=== PATIENT | female | born 1935 | race Caucasian/White ===

== ENCOUNTER 2016-05-23 07:27 | Day surgery (SDC) | payer MEDICARE ==
[2016-05-23] MEDS ORDERED: EPINEPHRINE 1 MG/ML AMPUL SQ ONE (12:58)
[2016-05-23] MEDS ORDERED: TETRACAINE HCL 0.5% 15 ML OPTH BTL OPTH ONE (12:58)
[2016-05-23] MEDS ORDERED: TOBRAMYCIN 0.3% OPTH DROP 5 ML BTL OPTH ONE (12:58)
[2016-05-23] MEDS ORDERED: PREDNISOLONE ACETATE 1% OPTH 10ML BOTTLE OPTH ONE (12:58)
[2016-05-23] MEDS ORDERED: NEOMYCIN/POLY./DEXAM OPTH OINT OPTH ONE (12:58)
[2016-05-23] MEDS ORDERED: TROPICAMIDE 1% 15ML BTL OP ONE (12:58)
[2016-05-23] MEDS ORDERED: DEXAMETHASONE 4 MG/ML 1ML VIAL IVP ONE (12:58)
[2016-05-23] MEDS ORDERED: LIDOCAINE 2% MDV (20MG/ML) 20ML VIAL IV ONE ×2 (12:58→15:30)
[2016-05-23] MEDS ORDERED: PHENYLEPHRINE HCL 10% OPTH BTL OPTH ONE (12:58)
[2016-05-23] MEDS ORDERED: PROPOFOL 10 MG/ML VIAL IV ONE (15:30)
--- NOTE | 2016-05-23 15:47 | OP NOTE CHAMES ---
DATE OF PROCEDURE: 05/23/16 PREOPERATIVE DIAGNOSIS: Nuclear sclerotic cataract, right eye. POSTOPERATIVE DIAGNOSIS: Nuclear sclerotic cataract, right eye. OPERATION: Phacoemulsification of cataractous lens with implantation of intraocular lens. LENS IMPLANT USED: Bynum Model PCB00 + 20.5 diopters. COMPLICATIONS: None. PROCEDURE IN DETAIL: Following a retrobulbar and facial block, the patient was prepped and draped in the usual fashion for eye surgery. A lid speculum was placed in the right eye after which a 2.4 mm tunnel wound was placed at the temporal limbus and dissected into clear cornea. A paracentesis was placed at 2 oclock hours to the left and right of the initial incision and the chamber deepened with Viscoelastic. The keratome was then used to enter the anterior chamber after which the continuous circular capsulorrhexis was accomplished without difficulty using a bent needle and a Utrata forceps. Hydrodissection and hydrodelineation of the lens was performed after which the nucleus of the lens was removed using the Phaco handpiece in the [id number] technique. The residual cortical material was irrigated and aspirated from the eye after which the bag and chamber were re-examined. The bag was re-inflated with Viscoelastic and the intraocular lens injected into the capsular bag where it centered well. The Viscoelastic was then copiously irrigated and aspirated from the eye after which the temporal tunnel wound and paracentesis were hydrated and the wounds were examined. They were noted to be watertight. The lid speculum was removed from the eye and the eye patched and shielded. The patient was transferred to the recovery room in satisfactory condition and given an appointment to be reexamined in the clinic later today or as directed by Dr. Tompkins. Oc Tompkins M.D. Date & Time JOB NUMBER: [id number] MTDD
== END 2016-05-23 10:12 | disposition home or self-care (01) ==
LOC: SUR 07:27
PROVIDERS: ATTEND Ophthalmology
DX: H25.11 Age-related nuclear cataract, right eye (principal); I10 Essential (primary) hypertension
CPT/HCPCS: J0171

== ENCOUNTER 2016-06-06 07:17 | Day surgery (SDC) | payer MEDICARE ==
[2016-06-06] MEDS ORDERED: LIDOCAINE 2% MDV (20MG/ML) 20ML VIAL IV ONE (12:36)
[2016-06-06] MEDS ORDERED: PREDNISOLONE ACETATE 1% OPTH 10ML BOTTLE OPTH ONE (12:36)
[2016-06-06] MEDS ORDERED: TETRACAINE HCL 0.5% 15 ML OPTH BTL OPTH ONE (12:36)
[2016-06-06] MEDS ORDERED: TOBRAMYCIN 0.3% OPTH DROP 5 ML BTL OPTH ONE (12:36)
[2016-06-06] MEDS ORDERED: EPINEPHRINE 1 MG/ML AMPUL SQ ONE (12:36)
[2016-06-06] MEDS ORDERED: PHENYLEPHRINE HCL 10% OPTH BTL OPTH ONE (12:36)
[2016-06-06] MEDS ORDERED: TROPICAMIDE 1% 15ML BTL OP ONE (12:36)
[2016-06-06] MEDS ORDERED: TETRACAINE HCL 0.5% OPTH 2ML SOLU OPTH ONE (12:36)
[2016-06-06] MEDS ORDERED: NEOMYCIN/POLY./DEXAM OPTH OINT OPTH ONE (12:36)
[2016-06-06] MEDS ORDERED: PROPOFOL 10 MG/ML VIAL IV ONE (14:00)
--- NOTE | 2016-06-06 14:52 | OP NOTE CHAMES ---
DATE OF PROCEDURE: 06/06/16 PREOPERATIVE DIAGNOSIS: Nuclear sclerotic cataract, left eye. POSTOPERATIVE DIAGNOSIS: Nuclear sclerotic cataract, left eye. OPERATION: Phacoemulsification of cataractous lens with implantation of intraocular lens. LENS IMPLANT USED: Bynum Model PCB00 + 20.5 diopters. COMPLICATIONS: None. PROCEDURE IN DETAIL: Following a retrobulbar and facial block, the patient was prepped and draped in the usual fashion for eye surgery. A lid speculum was placed in the left eye after which a 2.4 mm tunnel wound was placed at the temporal limbus and dissected into clear cornea. A paracentesis was placed at 2 oclock hours to the left and right of the initial incision and the chamber deepened with Viscoelastic. The keratome was then used to enter the anterior chamber after which the continuous circular capsulorrhexis was accomplished without difficulty using a bent needle and a Utrata forceps. Hydrodissection and hydrodelineation of the lens was performed after which the nucleus of the lens was removed using the Phaco handpiece in the [id number] technique. The residual cortical material was irrigated and aspirated from the eye after which the bag and chamber were re-examined. The bag was re-inflated with Viscoelastic and the intraocular lens injected into the capsular bag where it centered well. The Viscoelastic was then copiously irrigated and aspirated from the eye after which the temporal tunnel wound and paracentesis were hydrated and the wounds were examined. They were noted to be watertight. The lid speculum was removed from the eye and the eye patched and shielded. The patient was transferred to the recovery room in satisfactory condition and given an appointment to be reexamined in the clinic later today or as directed by Dr. Tompkins. Oc Tompkins M.D. Date & Time JOB NUMBER: [id number] MTDD
== END 2016-06-06 10:20 | disposition home or self-care (01) ==
LOC: SUR 07:17
PROVIDERS: ATTEND Ophthalmology
DX: H25.12 Age-related nuclear cataract, left eye (principal); I10 Essential (primary) hypertension
CPT/HCPCS: J0171

== ENCOUNTER 2017-07-10 09:54 | Emergency (ER) | payer MEDICARE ==
[2017-07-10] MEDS ORDERED: 0.9 % SODIUM CHLORIDE 1,000 ML BAG IV ONE (10:04)
[2017-07-10] MEDS ORDERED: ONDANSETRON HCL IV 4 MG/2 ML VIAL IV ONE (10:04)
[2017-07-10] MEDS ORDERED: MORPHINE SULFATE 5 MG/ML PFS IVP ONE ×2 (10:05→11:25)
[2017-07-10 10:29] LABS: HEMATOCRIT 43.7 % (35.0-47.0); HEMOGLOBIN 15.3 gm/dl (11.6-16.0); MEAN CELL VOLUME 84.7 fl (81-97); MEAN CORPUSCULAR HEMOGLOBIN 29.7 pg (27-33); MEAN PLATELET VOLUME 9.6 fl (7.4-10.4); PLATELET COUNT 364 K/uL (130-400); RED BLOOD COUNT 5.16 M/uL (3.80-5.40); WHITE BLOOD COUNT W/O DIFF 9.3 K/uL (4.2-12.2)
[2017-07-10 10:39] LABS: CREATININE 1.1 mg/dL (0.5-0.9)
[2017-07-10 10:40] LABS: BILIRUBIN,TOTAL 0.3 mg/dL (0.2-1.0); TOTAL PROTEIN 7.9 g/dL (6.6-8.7)
[2017-07-10 10:45] LABS: ALB/GLOB RATIO 1.5 (1.1-1.8); ALBUMIN 4.7 g/dL (4.0-5.0)
[2017-07-10 10:47] LABS: PARTIAL THROMBOPLASTIN TIME 28.9 SECONDS (24.5-39.1); PROTHROMBIN TIME (PATIENT) 10.7 SECONDS (9.5-12.1)
--- NOTE | 2017-07-10 10:50 | Emergency Department Record ---
History of Present Illness - General Chief Complaint: Abdominal Pain Stated Complaint: VOMITING/ABD PAIN Time Seen by Provider: 07/10/17 10:45 Source: Patient, Family Mode of Arrival: Wheelchair Limitations: No limitations - History of Present Illness Initial Comments: 81 yo female presents with vomiting and abdominal pain since about 2am. She was doing well yesterday. She does have an extensive history of abdominal surgeries and prior diverticulitis. No blood in the vomit. She did have 2 bowel movements last night that were normal. Her surgeon is Dr Wisdom at [facility]. She follows with [facility] as well. MD Complaint: Abdominal pain Onset/Timin -: Hour(s) Location: Diffuse Radiation: Other (Diffuse) Migration to: Other (diffuse) Severity: Moderate Quality: Other Consistency: Constant Improves With: Nothing Worsens With: Nothing Associated Symptoms: Nausea - Related Data Patient : No Hx Age of Menopause: 52 Home Medications Medication Instructions Recorded Confirmed Last Taken Amlodipine Besylate [Norvasc] 10 mg PO DAILY 07/10/17 07/10/17 07/09/17 Chlorothiazide [Chlorothiazide] 250 mg PO ASDIR 07/10/17 07/10/17 07/09/17 Clonidine Tts-1 [Catapres] 1 patch TOP ASDIR 07/10/17 07/10/17 07/09/17 Hydrocodone/Acetaminophen 1 tab PO Q6H PRN 07/10/17 07/10/17 07/10/17 00:00 [Hydrocodone/Acetaminophen 5mg/325mg] Hydroxyzine HCl [Hydroxyzine HCl] 25 mg PO QHS 07/10/17 07/10/17 07/08/17 Allergies Allergy/AdvReac Type Severity Reaction Status Date / Time Beta-Blockers Allergy Severe heart Verified 07/10/17 10:01 (Beta-Adrenergic Bloc stopped isosorbide mononitrate Allergy SWELLING Verified 07/10/17 10:01 [From Imdur] (GENERAL) paclitaxel [From Taxol] Allergy SWELLING Verified 07/10/17 10:01 (GENERAL) aspirin AdvReac protect Verified 07/10/17 10:01 single kidney NSAIDS (Non-Steroidal AdvReac protect Verified 07/10/17 10:01 Anti-Inflamma kidney iv dye AdvReac protect Uncoded 05/15/16 15:40 kidney Travel Screening - Travel/Exposure Within Last 30 Days Have you traveled within the last 30 days?: No - Travel/Exposure Within Last Year Have you traveled outside the [place] in the last year?: No - Additonal Travel Details Have you been exposed to anyone with a communicable illness?: No - Travel Symptoms Symptom Screening: None Review of Systems Constitutional: Denies: Chills, Fever, Malaise, Weakness Eyes: Denies: Eye discharge ENT: Denies: Congestion, Throat pain Respiratory: Denies: Cough Cardiovascular: Denies: Chest pain, Palpitations, Syncope Endocrine: Denies: Fatigue, Polydipsia, Polyuria Gastrointestinal: Reports: Abdominal pain, Nausea, Vomiting. 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; hx hemorrhoids; - Hx Genitourinary Disorders: No - ENDOCRINE Hx Endocrine Disorders: No - MUSCULOSKELETAL Hx Musculoskeletal Disorders: Yes Comment:: bone spur; spine - PSYCH Hx Psych Problems: No - HEMATOLOGY/ONCOLOGY Hx Hematology/Oncology Disorders: Yes Hx Cancer: Yes (kidney, ovarian, adrenal 2002-08) Hx Chemotherapy: Yes Hx Radiation Therapy: No Hx Blood Transfusions: Yes (3) Family Medical History Any Significant Family History?: Yes Hx Cancer: Brother/Sister Hx Heart Disease: Father, Mother Hx Stroke: Grandparents Physical Exam - General General Appearance: Alert, Oriented x3, Cooperative, No acute distress, Other ( Vomiting) Limitations: No limitations - Head Head exam: Normal inspection - Eye Eye exam: Normal appearance. negative: Conjunctival injection, Scleral icterus - ENT ENT exam: Normal exam, Mucous membranes moist Ear exam: Normal external inspection Nasal Exam: Normal inspection Mouth exam: Normal external inspection - Neck Neck exam: Normal inspection, Full ROM. negative: Tenderness - Respiratory Respiratory exam: Normal lung sounds bilaterally. negative: Respiratory distress - Cardiovascular Cardiovascular Exam: Regular rate, Normal rhythm, Normal heart sounds - GI/Abdominal GI/Abdominal exam: Guarding, Tenderness (diffusely tender but vomiting at time of initial examination). negative: Distended - Rectal Rectal exam: Deferred - exam: Deferred - Extremities Extremities exam: Normal inspection, Full ROM, Normal capillary refill. negative: Tenderness - Back Back exam: Reports: Normal inspection, Full ROM. Denies: Muscle spasm, Rash noted, Tenderness - Neurological Neurological exam: Alert, Normal gait, Oriented X3 - Psychiatric Psychiatric exam: Normal affect, Normal mood - Skin Skin exam: Dry, Intact, Normal color, Warm Course Vital Signs 07/10/17 10:07 Pulse Rate 76 Respiratory 24 Rate Blood Pressure 176/104 - Reevaluation(s) Reevaluation #1: 07/10/17 11:02 The labs were reviewed lactic acid normal range at 2.0 CR is 1.1 The CBC was reviewed with no acute changes. 07/10/17 11:03 The EMR was reviewed. No prior abdominal CT scans or prior ED visits listed. 07/10/17 11:[address] scan was reviewed The patient has a developing SBO. Her prior surgeries have all been at [facility] with Dr Wisdom. [facility] contacted 07/10/17 11:37 I ERROL Keene of surgery at [facility] The patient is accepted for transfer to surgery at [facility] 07/10/17 13:50 The prelim NGT XR was reviewed and appears in the stomach. No FA. 07/10/17 14:37 The patient felt improvement with the NGT with about 200cc output Medical Decision Making - Lab Data Result diagrams: 07/10/17 10:15 07/10/17 10:15 Lab Results 07/10/17 07/10/17 Range/Units 10:04 10:15 WBC 9.3 (4.2-12.2) K/uL RBC 5.16 (3.80-5.40) M/uL Hgb 15.3 (11.6-16.0) gm/dl Hct 43.7 (35.0-47.0) % MCV 84.7 (81-97) fl MCH 29.7 (27-33) pg MCHC 35.0 (32-36) g/dl RDW 14.0 (11.5-14.5) % Plt Count 364 (130-400) K/uL MPV 9.6 (7.4-10.4) fl Eosinophils % Not Reportable Basophils % Not Reportable Fluid Lactate Cancelled Disposition Disposition: Transfer Clinical Impression: Small bowel obstruction Disposition: Acute Care Hospital Transfer Transfer To: [facility] Reason For Transfer: SBO Accepting Physician: Jassi Time Discussed w/Accepting Physician: 11:22 Condition: (2) Stable Forms: Patient Portal Access Time of Disposition: 11:22 Quality - Quality Measures Quality Measures: N/A - Blood Pressure Screening Does Patient Have Any of the Following: Active Dx of HTN Blood Pressure Classification: Hypertensive Reading Systolic Measurement: 176 Diastolic Measurement: 104 Screening for High Blood Pressure: Patient Exclusion, Hx of HTN [G9744]
[2017-07-10] MEDS ORDERED: ACETAMINOPHEN 1,000 MG/100 ML BTL IVPB ONE (11:19)
[2017-07-10] MEDS ORDERED: 0.9 % SODIUM CHLORIDE 1000ML 1,000 ML IV ONE (11:23)
--- NOTE | 2017-07-10 14:26 | CT SCAN REPORT ---
EXAM: CT OF THE ABDOMEN AND PELVIS HISTORY: ABDOMINAL PAIN. TECHNIQUE: CT of the abdomen and pelvis was performed without oral or IV contrast, this limits evaluation of bowel and solid visceral organs. Comparison: Prior CT from 05/11/11. FINDINGS: Limited evaluation of the lung bases shows minor scarring in each lung base. Degenerative changes in the lumbar spine. Moderate atheromatous change. Probable fatty infiltrative change to the liver. Cholelithiasis. The spleen, right adrenal gland, pancreas, and right kidney are unremarkable. Left nephrectomy/adrenalectomy. Severe thinning/dehiscence of the anterior abdominal wall musculature with anterior bulging. A true hernia at the site of the anterior bulging is suspected superiorly. There is a second area of severe thinning and bulging near the umbilicus. Both of these areas have bowel loops extending into the area of anterior bulging. In addition, post surgical changes are noted with anastomotic suture material associated with small bowel loops near the umbilicus. Dilated fluid filled loops of small bowel at this site with a transition point, worrisome for at least partial obstruction. No definitive pneumatosis. Sigmoid diverticulosis without CT evidence for diverticulitis. Bilateral hip prostheses with associated artifact. IMPRESSION: 1. FINDING WORRISOME FOR SMALL BOWEL OBSTRUCTION, WITH TRANSITION POINT NEAR A SITE OF ANTERIOR ABDOMINAL WALL BULGING/HERNIA FORMATION NEAR THE UMBILICUS. THERE IS ANASTOMOTIC SUTURE MATERIAL AT THIS SITE WELL AND MINOR SURROUNDING INFLAMMATION. 2. OTHER INCIDENTAL FINDINGS, ABOVE. JOB NUMBER: [id number] [facility]
--- NOTE | 2017-07-11 07:29 | RADIOLOGY REPORT ---
EXAM: PORTABLE SEMI-ERECT ABDOMEN HISTORY: PAIN. TECHNIQUE: A portable semi-erect view of the abdomen was obtained. Comparison: CT from today's date. FINDINGS: Enteric tube with the tip in the left upper quadrant. Multiple surgical clips and suture material of the upper abdomen. No free air. The bowel gas pattern is nonspecific. IMPRESSION: ENTERIC TUBE WITH THE TIP IN THE LEFT UPPER QUADRANT. JOB NUMBER: [id number] MTDD
== END 2017-07-10 13:58 | disposition short-term general hospital (02) ==
LOC: ER 09:54
DX: K56.609 Unspecified intestinal obstruction, unspecified as to partial versus complete obstruction (principal); R11.2 Nausea with vomiting, unspecified; J44.9 Chronic obstructive pulmonary disease, unspecified; I10 Essential (primary) hypertension; Z87.891 Personal history of nicotine dependence; Z85.43 Personal history of malignant neoplasm of ovary
CPT/HCPCS: 99285 ×2; 96376; 96374; 96375; 96361; 83605; 83690; 85730; 85610; 80053; 85027; 74018; 74176; J2405; J2270; J7030